=== PATIENT | female | born 1990 | race Caucasian/White ===

== ENCOUNTER 2017-07-06 11:32 | Day surgery (SDC) | payer BC, OTHER ==
[~2017-07-06] VITALS: Ht 167.6 cm; Wt 97.0 kg
[2017-07-06] MEDS ORDERED: NO MEDICATIONS (12:06)
[2017-07-06 12:07] VITALS: Ht 167.6 cm; Wt 97.0 kg
[2017-07-06] MEDS ORDERED: no meds. (12:58)
[2017-07-06 13:04] VITALS: BP 116/65; PULSE 73; RESP 17
[2017-07-06] MEDS ORDERED: PROPOFOL 40 ML ONE (13:32)
[2017-07-06] MEDS ORDERED: LIDOCAINE 2% (SDV) 5 ML INJ ONE (13:32)
--- NOTE | 2017-07-06 14:03 | OPPN ---
Date/Time of Note Date/Time of Note DATE: 07/06/17 TIME: 14:01 Operative Report Preoperative Diagnosis Change in bowel habit Lower abdominal pain Rectal bleeding Postoperative Diagnosis Internal hemorrhoids Operation/Procedure Performed Colonoscopy Provider: MARIA D SHEPHERD MD Anesthesia Type: MAC Estimated blood loss: none Transfusion Required: no Specimen: none Grafts/Implants: none Complications: no MARIA D SHEPHERD MD Jul 06, 2017 14:03
[2017-07-06 14:17] VITALS: BP 119/81; PULSE 66; RESP 14
--- NOTE | 2017-07-06 21:38 | GILP ---
DATE OF PROCEDURE: 07/06/2017 PREOPERATIVE DIAGNOSES: 1. Change in bowel habits. 2. Lower abdominal pain. 3. History of rectal bleeding. POSTOPERATIVE DIAGNOSES: 1. Colonoscopy all the way to the cecum. 2. Internal hemorrhoids. PROCEDURE PERFORMED: Colonoscopy. SURGEON: Kristofer Robert MD. INDICATIONS FOR PROCEDURE: Ms. Debora Armando is a 26-year-old female patient who was complaining of change in the bowel habits, lower abdominal pain with occasional rectal bleeding. The patient was scheduled for a colonoscopy for further evaluation. The procedure and possible complications were well explained to the patient. She understood and consented to the procedure. DESCRIPTION OF PROCEDURE: Under the influence of anesthesia the colonoscope was carefully introduced in the rectum and under direct vision it was advanced all the way to the cecum. Findings, the patient had internal hemorrhoids. No colitis or neoplasm was identified. She tolerated the procedure very well. There was no complication from the procedure. At the end of procedure she was awake with stable vital signs and she was discharged home in the care of her family. IMPRESSION: Please see postoperative diagnoses. PLAN: 1. MiraLax 17 g dissolved in a glass of water p.o. daily. 2. High-fiber diet. Dictated By: MD ANGELA To/ryanne/[email or web address] /Document#: [id number] CC: Kristofer Robert MD;*[facility]*
== END 2017-07-06 15:27 | disposition home or self-care (01) ==
LOC: GIL 11:32
PROVIDERS: ATTEND Internal Medicine Gastroenterology
DX: R19.4 Change in bowel habit (principal); K64.8 Other hemorrhoids; E66.9 Obesity, unspecified; Z68.34 Body mass index [BMI] 34.0-34.9, adult
CPT/HCPCS: 45378; 84703; Z7610

== ENCOUNTER 2017-11-04 13:13 | Day surgery (SDC) | END 2017-11-04 19:51 | disposition home or self-care (01) ==

== ENCOUNTER 2019-07-01 07:51 | Emergency (ER) | payer BC ==
[~2019-07-01] VITALS: Ht 165.1 cm; Wt 90.0 kg
[2019-07-01 07:55] VITALS: BP 150/89; PULSE 83; RESP 18; Ht 165.1 cm; Wt 90.0 kg
[2019-07-01] MEDS ORDERED: ACETAMINOPHEN 500 MG TAB PO STA (09:53)
== END 2019-07-01 10:32 | disposition home or self-care (01) ==
LOC: FTE 07:51
DX: O34.12 Maternal care for benign tumor of corpus uteri, second trimester (principal); R10.2 Pelvic and perineal pain; Z3A.14 14 weeks gestation of pregnancy
CPT/HCPCS: 36415; 76805; 80053; 81001; 84702; 85025; 85610; 85730; 86900; 86901; Z7502